=== PATIENT | male | born 1965 | race Caucasian/White ===

== ENCOUNTER 2017-02-08 12:04 | Emergency (ER) | payer SELFPAY ==
[~2017-02-08] VITALS: Ht 188 cm; Wt 72.6 kg
[2017-02-08 14:32] VITALS: BP 137/92
[2017-02-08] MEDS ORDERED: KETOROLAC TROMETH 60MG/2ML VIAL IM ONE ×2 (15:00→15:30)
== END 2017-02-08 15:57 | disposition home or self-care (01) ==
LOC: ER 12:04
DX: M79.604 Pain in right leg (principal)
CPT/HCPCS: 73590; 96372